=== PATIENT | male | born 1980 | race Hispanic/Latino ===

== ENCOUNTER 2018-08-04 15:19 | Emergency (ER) | payer BC ==
[~2018-08-04] VITALS: Ht 175.3 cm; Wt 122.5 kg
--- NOTE | 2018-08-04 15:47 | NUR ---
US CALLED ETA 45 MINUTES
--- NOTE | 2018-08-04 16:30 | NUR ---
US AT PATIENTS BEDSIDE. PTS VITAL SIGNS STABLE, PT VOICES NO COMPLAINTS AT THIS TIME.
--- NOTE | 2018-08-04 17:57 | Diagnostic Imaging Report ---
ULTRASOUND LEFT LOWER EXTREMITY Color Doppler evaluation was utilized to supplement the evaluation. HISTORY: Left leg pain COMPARISON: None available. DISCUSSION: The femoral, greater saphenous and popliteal veins were examined using hawthorne scale compression ultrasound with the aid of color flow and pulsed wave doppler. The common femoral, greater saphenous, superficial femoral, profunda femoris and popliteal veins are normally compressible. Normal pulsed wave Doppler responses with calf augmentation. IMPRESSION: No evidence of deep venous thrombosis in the left lower extremity as described above. Signed by: Dr. Brian Carter D.O., M.M.M. on 08/04/2018 5:53 PM
--- NOTE | 2018-08-04 18:28 | Diagnostic Imaging Report ---
PRELIMINARY REPORT: 1. No focal high-grade obstruction. 2. Exam is partially limited by body habitus. 3. Please refer to the final report for complete details of this study. Examination: Left lower extremity arterial duplex. Clinical indication: Left leg pain Technique: Transverse and longitudinal sonographic images of the left lower extremity femoropopliteal and anterior and posterior tibial arteries were obtained with color Doppler and spectral waveform analysis. Comparison examination: None. Findings: Common femoral artery: Patent, triphasic waveform, estimated velocity 73 cm/s Proximal superficial femoral artery: Patent, triphasic waveform, estimated velocity 82 cm/s Mid superficial femoral artery: Patent, triphasic waveform, estimated velocity 64 cm/s Distal superficial femoral artery: Patent, triphasic waveform, estimated velocity 60 cm Pers[place] Popliteal artery: Patent, triphasic waveform, estimated velocity 40 cc Posterior tibial artery: Patent, triphasic waveform, estimated velocity 45 cm/s Anterior tibial artery: Patent, triphasic waveform, estimated velocity 50 cm/s Dorsalis pedis artery: Patent, triphasic waveform, estimated velocity 34 cm/s Examination is limited secondary to patient body habitus. Impression: Limited examination due to patient body habitus. No sonographic evidence of hemodynamically significant stenosis in the left lower extremity arterial system. A preliminary report was provided by Dr. Carter upon completion of the examination on 08/04/2018. Signed by: Dr. Miguel West M.D. on 08/05/2018 7:13 AM
== END 2018-08-04 18:52 | disposition home or self-care (01) ==
LOC: FSED 15:19
DX: M79.662 Pain in left lower leg (principal); W18.30XA Fall on same level, unspecified, initial encounter; I10 Essential (primary) hypertension
CPT/HCPCS: 93926; 93971; 99283